=== PATIENT | female | born 1995 | race Caucasian/White ===

== ENCOUNTER → 2017-05-31 | Outpatient (REF) | payer OTHER | LOC: M LAB REF 16:22 | PROVIDERS: ATTEND Physician Assistant | DX: J02.0 Streptococcal pharyngitis (principal) ==

== ENCOUNTER 2017-06-18 14:23 | Emergency (ER) | payer OTHER ==
[~2017-06-18] VITALS: Ht 157.5 cm; Wt 51.8 kg
[2017-06-18] MEDS: KETOROLAC 30 MG/ML VIAL (J1885) IV ONE (15:45)
[2017-06-18] MEDS ORDERED: NS 1,000 ML IV ONE (15:45)
[2017-06-18 16:17] LABS: BASO % 0.6 % (0.0-1.0); EOS # 0.1 10^3/uL (0.0-0.50); EOS % 0.9 % (0.0-3.0); IMMATURE GRANULOCYTE % 0.3 % (0-0); LYMPH # 2.2 10^3/uL (1.5-6.5); MEAN CORPUSCULAR HGB CONC 35.4 g/dl (32.0-36.5); MEAN CORPUSCULAR VOLUME 93.2 fl (80.0-96.0); MONO # 0.3 10^3/uL (0.0-0.8); MONO % 4.9 % (0.0-5.0); NEUTROPHILS % 60.3 % (36.0-66.0); PLATELET COUNT, AUTOMATED 210 10^3/uL (150-450); RED CELL DISTRIBUTION WIDTH 12.3 % (11.5-14.5); WHITE BLOOD COUNT 6.7 10^3/uL (4.0-10.0)
[2017-06-18 16:41] LABS: ALBUMIN 4.3 GM/DL (3.2-5.2); ALBUMIN/GLOBULIN RATIO 1.54 (1.00-1.93); ALKALINE PHOSPHATASE 88 U/L (45-117); ALT/SGPT 42 U/L (12-78); ANION GAP 7 MEQ/L (8-16); AST/SGOT 20 U/L (7-37); BILIRUBIN,DIRECT < 0.1 MG/DL (0.0-0.2); BILIRUBIN,TOTAL 0.3 MG/DL (0.2-1.0); BLOOD UREA NITROGEN 16 MG/DL (7-18); CALCIUM LEVEL 8.6 MG/DL (8.5-10.1); CARBON DIOXIDE LEVEL 26 MEQ/L (21-32); CHLORIDE LEVEL 106 MEQ/L (98-107); CREATININE FOR GFR 0.59 MG/DL (0.55-1.02); GLOMERULAR FILTRATION RATE > 60.0 (>60); GLUCOSE, FASTING 88 MG/DL (70-105); POTASSIUM SERUM 3.7 MEQ/L (3.5-5.1); SODIUM LEVEL 139 MEQ/L (136-145); TOTAL PROTEIN 7.1 GM/DL (6.4-8.2)
[2017-06-18] MEDS ORDERED: ACETAMINOPHEN 325 MG TAB PO ONE (16:45)
--- NOTE | 2017-06-18 16:47 | REP ---
Pelvic ultrasound including transabdominal, endovaginal and Doppler ultrasound assessment: The patient had IUD placed 3 weeks ago and now has heavy vaginal bleeding and pain. Balloon bladder is not optimally distended. The uterus is retroverted and normal size 7.9 x 4.1 x 6.1 cm. The endometrium is not thickened for patient age measuring 14 mm. The IUD is centrally placed within the endometrial canal. The right ovary measures 2.6 x 1.6 x 2.6 cm. Left ovary measures 3.3 x 2.0 x 1.9 cm. The ovaries are normal size. There is no dominant ovarian mass or cyst. There is vascular flow in both ovaries. The Doppler resistive index of the intraparenchymal arteries on the right is 0.49 on the left 0.57. There is no free fluid in the cul-de-sac. Impression: The IUD is centrally placed within the endometrial canal. Otherwise, essentially negative pelvic ultrasound. Signed by Yosef Mak MD 06/18/2017 04:39 P
[2017-06-18 18:35] VITALS: BP 114/75
== END 2017-06-18 18:37 | disposition home or self-care (01) ==
LOC: M ED 14:23
DX: N93.8 Other specified abnormal uterine and vaginal bleeding (principal)